=== PATIENT | female | born 1990 | race Two or more races ===

== ENCOUNTER 2018-05-28 14:00 | Outpatient (CLI) | payer MEDICAID ==
--- NOTE | 2018-05-28 19:30 | Consultation ---
DATE OF CONSULTATION: 05/28/2018 CHIEF COMPLAINT: Abdominal pain. HISTORY OF PRESENT ILLNESS: This is a 28-year-old female with past medical history of morbid obesity, had a recent diverticulitis in March, was referred to us for colonoscopy. PAST MEDICAL HISTORY: 1. Diverticulitis. 2. Morbid obesity. 3. Abdominal mass, which was removed, which was benign. PAST SURGICAL HISTORY: As above. MEDICATIONS: None. ALLERGIES: No known drug allergies. FAMILY HISTORY: None. SOCIAL HISTORY: The patient drinks socially. No intravenous drug abuse. No tobacco abuse. REVIEW OF SYSTEMS: A 10-point review of systems was performed and pertinent positives in HPI. PHYSICAL EXAMINATION: VITAL SIGNS: Temperature 99.1, blood pressure is 132/82, pulse is 78, and respirations 20. Weight is 374. Height is 5 feet 3 inches. HEENT: Normocephalic and atraumatic. Sclerae anicteric. NECK: Supple. No evidence of obvious lymphadenopathy. CARDIOVASCULAR: Regular rate and rhythm. Plus S1 and S2. No obvious murmur. LUNGS: Clear breath sounds bilaterally. ABDOMEN: Positive bowel sounds. Soft, nontender. No rebound. No guarding. No peritoneal sign. EXTREMITIES: No cyanosis. No clubbing. No edema. ASSESSMENT AND PLAN: 1. Diverticulitis in March of 2018. The patient would need a colonoscopy. Prep instruction and colonoscopy instruction was given to the patient. We will schedule pending authorization. 2. Morbid obesity. The patient was informed about her options including gastric bypass sleeve. The patient was recommended to call her insurance to follow up with the bariatric surgeon. Eliseo Stringer M.D. DR: ALISSON JOB#: [id number] CC:
== END 2018-05-28 16:00 | disposition home or self-care (01) ==
LOC: PAN 14:00
DX: K57.92 Diverticulitis of intestine, part unspecified, without perforation or abscess without bleeding (principal); E66.01 Morbid (severe) obesity due to excess calories

== ENCOUNTER 2018-08-27 13:04 | Outpatient (CLI) | payer MEDICAID ==
--- NOTE | 2018-08-27 13:45 | General Progress Note ---
Assessment/Plan Problem List: (1) Diverticulosis ICD Codes: K57.90 - Diverticulosis of intestine, part unspecified, without perforation or abscess without bleeding SNOMED: [id number] Assessment/Plan: s/p colonoscopy no obvious mass recommend gastric bypass Subjective ROS Limited/Unobtainable: Yes Objective General Appearance: alert EENT: normal ENT inspection Neck: supple Cardiovascular: normal rate Respiratory/Chest: decreased breath sounds Abdomen: normal bowel sounds, non tender, soft Extremities: non-tender Eliseo Stringer MD Aug 27, 2018 13:45
[2018-08-27 17:02] VITALS: BP 118/70
== END 2018-08-27 15:04 | disposition home or self-care (01) ==
LOC: PAN 13:04
DX: K57.90 Diverticulosis of intestine, part unspecified, without perforation or abscess without bleeding (principal)